=== PATIENT | male | born 1970 | race Caucasian/White ===

== ENCOUNTER 2024-01-18 06:22 | Emergency (ER) | payer BC, OTHER ==
[2024-01-18 06:27] VITALS: RESP 18; BMI 23.3
[2024-01-18 08:25] LABS: VENOUS BASE EXCESS 2.7 mmol/L (-2-2); VENOUS PCO2 49.3 mmHg (38-52); VENOUS PH 7.382 (7.310-7.410)
[2024-01-18 08:45] LABS: INR 0.95 (0.83-1.09); PROTHROMBIN TIME (PATIENT) 10.8 SEC (9.7-13.0)
[2024-01-18 08:49] LABS: ACTIVATED PTT 27.7 SECONDS (25.2-36.5)
[2024-01-18 08:53] LABS: PH,URINE 7.5 (5.0-8.0); URINE APPEARANCE CLEAR; URINE BILIRUBIN NEGATIVE (NEGATIVE); URINE COLOR YELLOW; URINE GLUCOSE (UA) NEGATIVE (NEGATIVE); URINE KETONE NEGATIVE (NEGATIVE); URINE LEUK ESTERASE NEGATIVE (NEGATIVE); URINE NITRITE NEGATIVE (NEGATIVE); URINE PROTEIN NEGATIVE (NEGATIVE); URINE UROBILINOGEN 0.2 mg/dL (0.2-1.0)
[2024-01-18 08:55] LABS: BASO % 0.4 % (0-2.0); CHLORIDE 108 mmol/L (98-107); EOS % 2.9 % (0-4.5); HEMATOCRIT 34.6 % (35.4-49); HEMOGLOBIN 11.9 GM/dL (11.7-16.9); LYMPH % 13.1 % (8-40); MCH 37.5 pg (25.7-33.7); MCHC 34.4 g/dl (32.0-35.9); MEAN CELL VOLUME 109.1 fl (80-96); MEAN PLT VOLUME 7.7 fl (7.5-11.1); MONO % 13.5 % (3.8-10.2); NEUT % 70.1 % (42.8-82.8); PLATELET COUNT 201 10^3/uL (134-434); POTASSIUM 3.9 mmol/L (3.5-5.1); RBC 3.17 M/mm3 (4.00-5.60); RDW 14.8 % (11.9-15.9); SODIUM 140 mmol/L (136-145); WHITE BLOOD COUNT 6.8 K/mm3 (4.0-10.0)
[2024-01-18 08:57] LABS: ALBUMIN 3.5 g/dl (3.4-5.0); ANION GAP 4 mmol/L (4-13); BLOOD UREA NITROGEN 11.3 mg/dL (7-18); CALCIUM 8.7 mg/dL (8.5-10.1); CO2 28 mmol/L (21-32); GLUCOSE,RANDOM 117 mg/dL (74-106)
[2024-01-18 09:00] LABS: CREATININE 0.7 mg/dL (0.55-1.3); SGOT/AST 43 U/L (15-37)
[2024-01-18 09:01] LABS: SGPT/ALT 80 U/L (13-61)
[2024-01-18 09:02] LABS: BILIRUBIN,TOTAL 0.5 mg/dL (0.2-1); TOT PROT 5.7 g/dl (6.4-8.2)
[2024-01-18 09:03] LABS: ALK PHOS 85 U/L (45-117)
[2024-01-18 12:11] VITALS: BP 141/97; PULSE 68; TEMP 97.6
[2024-01-18 15:04] LABS: ANISOCYTOSIS 3+; MACROCYTOSIS 3+
== END 2024-01-18 13:30 | disposition home or self-care (01) ==
LOC: JER 06:22
DX: D35.00 Benign neoplasm of unspecified adrenal gland (principal); R00.2 Palpitations; R53.1 Weakness; R06.00 Dyspnea, unspecified; R53.83 Other fatigue; R53.81 Other malaise; R07.89 Other chest pain; R42 Dizziness and giddiness; Z20.822 Contact with and (suspected) exposure to COVID-19
CPT/HCPCS: 0241U-QW; 36415; 71046-TC-FY; 71275-TC; 80053; 80307; 81003; 82803; 83880; 84439; 84443; 84484; 85025; 85610; 85730; 87086; 93005; 93010; 93970-TC; 99285-25; Q9967

== ENCOUNTER 2024-02-29 08:56 | Emergency (ER) | payer BC, OTHER ==
[2024-02-29 09:01] VITALS: RESP 18; TEMP 97.8; BMI 25.4
[2024-02-29] MEDS ORDERED: DIPHTH,PERTUSS(ACELL),TET VAC 0.5 ML VIAL IM ONE (12:17)
[2024-02-29] MEDS ORDERED: DIPHTH,PERTUSS(ACELL),TET 0.5 ML DISP.SYRIN IM ONE (12:22)
[2024-02-29] MEDS ORDERED: LIDOCAINE HCL 2% (50ML VIAL) SQ ONE (13:13)
[2024-02-29] MEDS ORDERED: chlordiazePOXIDE HCL 25 MG CAPSULE ONE ×2 (13:22→14:48)
[2024-02-29] MEDS ORDERED: LIDOCAINE 1%/EPI 1:100000 (20 ML MULTI DOSE VIAL) ONE (13:22)
[2024-02-29] MEDS: chlordiazePOXIDE HCL 25 MG CAPSULE PO ONE ×2 (13:24→14:58)
[2024-02-29 14:38] VITALS: BP 138/99; PULSE 79
[2024-02-29] MEDS: LIDOCAINE 1%/EPI 1:100000 (20 ML MULTI DOSE VIAL) PNB ONE (14:56)
[2024-02-29] MEDS: DIPHTH,PERTUSS(ACELL),TET 0.5 ML DISP.SYRIN IM ONE (14:58)
== END 2024-02-29 15:17 | disposition home or self-care (01) ==
LOC: JER 08:56
PROC: 0HQ1XZZ Repair Face Skin, External Approach (ICD-10-PCS; principal; 2024-02-29)
PROC: 3E0234Z Introduction of Serum, Toxoid and Vaccine into Muscle, Percutaneous Approach (ICD-10-PCS; 2024-02-29)
DX: S01.81XA Laceration without foreign body of other part of head, initial encounter (principal); F10.10 Alcohol abuse, uncomplicated; W22.8XXA Striking against or struck by other objects, initial encounter; Z23 Encounter for immunization
CPT/HCPCS: 70450-TC; 70486-TC; 72125-TC; 90715; 99284-25

== ENCOUNTER 2024-05-22 09:05 | Emergency (ER) | payer OTHER ==
[2024-05-22 09:24] VITALS: BP 118/66; PULSE 58; RESP 16; TEMP 98; BMI 24.3
[2024-05-22] MEDS: ACETAMINOPHEN 325 MG TABLET (FP) PO ONE (09:59)
== END 2024-05-22 13:07 | disposition home or self-care (01) ==
LOC: JERFT 09:05
DX: S52.132A Displaced fracture of neck of left radius, initial encounter for closed fracture (principal); V04.90XA Pedestrian on foot injured in collision with heavy transport vehicle or bus, unspecified whether traffic or nontraffic accident, initial encounter
CPT/HCPCS: 73070-TC-LT-FY; 73090-TC-LT-FY; 73110-TC-LT-FY; 73130-TC-LT-FY; 99283-25

== ENCOUNTER 2024-11-03 12:33 | Inpatient (IN) | payer OTHER ==
[2024-11-03 13:37] VITALS: BMI 23.8
[2024-11-03] MEDS ORDERED: guaiFENesin 600 MG TABLET.ER (FP) PO PRN (14:15)
[2024-11-03] MEDS ORDERED: BENZOCAINE/MENTHOL (CHLORASEPTIC ) LOZENGE MM PRN (14:15)
[2024-11-03] MEDS ORDERED: ACETAMINOPHEN 325 MG TABLET (FP) PO PRN (14:15)
[2024-11-03] MEDS ORDERED: POLYETHYLENE GLYCOL (HEALTHYLAX) 3350 17 GM PACKET PO PRN (14:15)
[2024-11-03] MEDS ORDERED: BENZONATATE 200 MG CAPSULE PO PRN (14:15)
[2024-11-03] MEDS ORDERED: LOPERAMIDE HCL 2 MG CAPSULE PO PRN (14:15)
[2024-11-03] MEDS ORDERED: NALOXONE (NARCAN) HCL 4 MG/0.1 ML SPRAY NS PRN (14:15)
[2024-11-03] MEDS ORDERED: MAGNESIUM HYDROX 2400MG/30ML ORAL SUSPENSION 30 ML CUP PO PRN (14:15)
[2024-11-03] MEDS ORDERED: MAG HYDROX/AL HYDROX/SIMETH 30 ML UNIT-DOSE CUP PO PRN (14:15)
[2024-11-03] MEDS ORDERED: IBUPROFEN 400 MG TABLET (FP) PO PRN (14:15)
[2024-11-03] MEDS ORDERED: TUBERCULIN PPD 5 TU/0.1ML VIAL ID ONE (18:53)
[2024-11-03] MEDS: TUBERCULIN PPD 5 TU/0.1ML SYRINGE (IN PATIENT USE ONLY) ID ONE (19:00)
[2024-11-03 20:27] LABS: PH,URINE 7.5 (5.0-8.0); URINE APPEARANCE CLOUDY; URINE BILIRUBIN NEGATIVE (NEGATIVE); URINE COLOR YELLOW; URINE GLUCOSE (UA) NEGATIVE (NEGATIVE); URINE KETONE NEGATIVE (NEGATIVE); URINE LEUK ESTERASE NEGATIVE (NEGATIVE); URINE NITRITE NEGATIVE (NEGATIVE); URINE PROTEIN NEGATIVE (NEGATIVE); URINE UROBILINOGEN 0.2 mg/dL (0.2-1.0)
[2024-11-03] MEDS: MELATONIN 5 MG TABLETS PO SCH (21:10)
[2024-11-03] MEDS: THIAMINE 100 MG TABLET PO SCH (21:10)
[2024-11-04] MEDS: predniSONE 10 MG TABLET (UD) PO SCH (10:28)
[2024-11-04] MEDS: DAPSONE 25 MG TABLET PO SCH (10:28)
[2024-11-04] MEDS: CHOLECALCIFEROL (VIT D3) 1,000 UNIT (25 MCG) TABLET PO SCH (10:28)
[2024-11-04] MEDS: PRENATAL VITAMINS W/ FOLIC ACID TABLET (FP) PO SCH (10:29)
[2024-11-04 11:07] LABS: HEMATOCRIT 42.6 % (40.1-51.0); HEMOGLOBIN 13.9 g/dL (13.7-17.5); MCHC 32.6 g/dl (32.3-36.5); MEAN CELL VOLUME 99.1 fl (79.0-92.2); MEAN PLT VOLUME 10.1 fl (9.4-12.4); PLATELET COUNT 317 x10^3/uL (163-337); RDW 14.8 % (12.2-16.1)
[2024-11-04 11:13] LABS: POTASSIUM 3.9 mmol/L (3.5-5.1)
[2024-11-04 11:16] LABS: CALCIUM 9.9 mg/dL (8.5-10.1)
[2024-11-04 11:17] LABS: ALBUMIN 4.2 g/dl (3.4-5.0); BLOOD UREA NITROGEN 10.6 mg/dL (7-18)
[2024-11-04 11:20] LABS: CREATININE 0.8 mg/dL (0.55-1.3)
[2024-11-04 11:21] LABS: BILIRUBIN,TOTAL 0.8 mg/dL (0.2-1)
[2024-11-04 11:22] LABS: TOT PROT 6.9 g/dl (6.4-8.2)
[2024-11-05] MEDS: HYDROCORTISONE 1% TOPICAL OINT 30 GM TUBE TP SCH (11:35)
[2024-11-05] MEDS: NALTREXONE HCL 50 MG TABLET PO ONE (13:08)
[2024-11-05] MEDS: TRIAMCINOLONE ACET 0.5% OINT 15 GM TUBE TP SCH (21:20)
[2024-11-06] MEDS: NALTREXONE HCL 50 MG TABLET PO SCH (09:54)
[2024-11-06 12:15] LABS: INR 1.17 (0.83-1.09); PROTHROMBIN TIME (PATIENT) 12.7 SEC (9.7-13.0)
[2024-11-06] MEDS: TRIAMCINOLONE ACET 0.5% OINT 15 GM TUBE TP PRN (21:09)
[2024-11-09] MEDS: LACTULOSE 20 GM/30 ML UDC (FOR ORAL USE ONLY) PO SCH (13:06)
[2024-11-19] MEDS: IBUPROFEN 600 MG TABLET (FP) PO PRN (08:44)
[2024-11-29] MEDS: NALTREXONE MICROSPHERES (VIVITROL) 380 MG DISP.SYRIN IM ONE (10:19)
[2024-11-30 06:30] VITALS: BP 144/88; PULSE 95; RESP 16; TEMP 97.7
== END 2024-11-30 09:24 | disposition home or self-care (01) | DRG 772 ==
LOC: YASAS 12:33 → Y3E 15:38
PROVIDERS: ADMIT Psychiatry & Neurology Pain Medicine; ATTEND Psychiatry & Neurology Pain Medicine
PROC: HZ42ZZZ Group Counseling for Substance Abuse Treatment, Cognitive-Behavioral (ICD-10-PCS; principal; 2024-11-03)
DX: F10.20 Alcohol dependence, uncomplicated (principal); F12.20 Cannabis dependence, uncomplicated; F17.210 Nicotine dependence, cigarettes, uncomplicated; L13.0 Dermatitis herpetiformis; K90.0 Celiac disease
CPT/HCPCS: 36415; 80053; 80305; 80307; 81003; 82140; 82652; 83735; 85027; 85610; 86780; 86803; 87811; 93005; 93010; J2315